=== PATIENT | male | born 1995 | race Two or more races ===

== ENCOUNTER 2023-09-05 09:20 | Emergency (ER) | payer MEDICAID ==
[~2023-09-05] VITALS: Ht 170.2 cm; Wt 80.0 kg
[2023-09-05 09:23] VITALS: BP 114/74; PULSE 70; RESP 16; TEMP 97.6; O2SAT 98
== END 2023-09-05 10:00 | disposition left against medical advice (07) ==
LOC: ER 09:20
DX: R07.89 Other chest pain (principal); Z53.21 Procedure and treatment not carried out due to patient leaving prior to being seen by health care provider
CPT/HCPCS: 93005; 99281